=== PATIENT | male | born 1945 | race Caucasian/White ===

== ENCOUNTER → 2017-10-19 15:25 | Outpatient (BNVA) | payer MEDICARE, OTHER, SELFPAY | PROVIDERS: PCP Family Medicine; Visit Provider Surgery | DX: R93.3 Abnormal findings on diagnostic imaging of other parts of digestive tract (principal) | CPT/HCPCS: 99212 ==

== ENCOUNTER 2017-11-03 06:20 | Day surgery (SDC) | payer MEDICARE, OTHER, SELFPAY ==
[2017-11-03 06:20] VITALS: BP 154/81; PULSE 62; RESP 15; TEMP 36.4; O2SAT 99
[2017-11-03] MEDS: Lactated Ringers 1,000 ML 30 ML IV (07:00)
--- NOTE | 2017-11-03 07:49 | STOM_PTH ---
PATIENT: Mode Montejo JR LOC: [facility] U#:[id number] AGE/SX: 72/M ROOM: RE11/03/[address]: Chemo Harris DO : 1945 BED: DIS: 11/03/2017 SPEC #: [id number] RECD: 11/03/17 12:48 STATUS: JOSE EDUARDO RE #: [id number] LEAH: 11/03/17 07:[address]: Chemo Harris DEPT: Surgical Specimen RECD BY: Heather Buchanan ENTERED: 11/03/17 12:49 SP TYPE: STOMACH OTHR DR: Aditi Contreras Tissues: 1 - STOMACH BIOPSY 2 - ESOPHAGUS BIOPSY 3 - BIOPSY BOWEL Procedures: GROSS AND MICRO LEVEL 4 Comments: [id number]
--- NOTE | 2017-11-03 08:29 | W.PM.DSUDISC ---
Discharge Plan Disposition Patient Disposition: HOME Condition: Good Discharge Details Reason For Visit: Endoscopy Attending Provider: Chemo Harris Primary Care Provider: Aditi Contreras Home Meds and New Rx's Prescriptions: Continue losartan 50 MG tablet 50 mg PO DAILY RF: 0 atorvastatin [Lipitor] 10 MG tablet 10 mg PO EVERY OTHER DAY RF: 0 levothyroxine 112 MCG tablet 112 mcg PO DAILY RF: 0 vardenafil [Levitra] 5 MG tablet 5 mg PO PRN RF: 0 aspirin [Aspir-81] 81 MG tablet,delayed release (DR/EC) 81 mg PO DAILY Qty: 30 RF: 0 multivitamin [Daily Vitamin Formula] 1 EACH tablet 1 ea PO DAILY RF: 0 cholecalciferol (vitamin D3) [Vitamin D3] 1,000 UNIT capsule 1,000 unit PO DAILY RF: 0 yeast [Serrato's Yeast] 500 MG tablet 500 mg PO BID RF: 0 Discharge Instructions Instructions: Upper Endoscopy (DC), Colonoscopy (GEN) Activity:: Activity as Tolerated Diet:: As Tolerated Discharge Orders Discharge Orders: Discharge Order (Routine); Ordered 11/03/17 Ordered By: Chemo Harris DS: Diagnosis Discharge Diagnosis (1) Abnormal finding on CT scan: Status: Acute Asessment and Plan: EGD and colonoscopy scheduled for upper to evaluate thickening of esophagus and colitis seen on recent CT
--- NOTE | 2017-11-03 08:33 | W.PM.OP ---
Date of service: 11/03/17 Time of Service: 08:34 Operative Note DATE OF PROCEDURE: 11/03/17 PRE-OP DIAGNOSIS: Abnormal findings On CT POST-OP DIAGNOSIS: other (1. Alicia Quintanilla Tears, 2. Moderate Sigmoid Diverticulosis, 3. Sigmoid Colon Polyp, 4. Grade II Hemorrhoids) PROCEDURE: 1. Esophagogastroduodenoscopy with biopsy by cold forceps 2. Colonoscopy to the cecum with biopsy by cold forceps SURGEON: Chemo Harris ANESTHESIA: MAC (Chon Esteban CRNA ASA 2, Mallampati II) ESTIMATED BLOOD LOSS: 0.5 PATHOLOGY: other (1. Gastric Antral Bx 2. GE Jxn Bx 3. Sigmoid colon polyp) COMPLICATIONS: None Patient was transported to: same day Patient's condition: stable Implants: Bowel Preparation: Miralax/Biscodyl, Prep quality excellent Indications: 72-year-old male recently hospitalized for small bowel obstruction. Workup for small bowel obstruction did demonstrate abnormal findings on CT of both the esophagus and colon. Small bowel obstruction resolved with conservative therapy. Was recommended he undergo upper and lower endoscopy to things on CT from both the lower esophagus and colon. The procedures were discussed with him and the associated risks reviewed. All his questions were answered to his satisfaction Findings: On examining the upper gastrointestinal tract from the oropharynx to the third portion of the duodenum, linear erosions were noted at the GE junction consistent with Alicia-Quintanilla tears, and there is inflammatory changes noted in the gastric antrum. In examination of the colon from cecum to anus, patient was noted to have mild to moderate sigmoid diverticulosis, grade 2 hemorrhoids, and a sigmoid polyp was removed by cold biopsy forceps. Procedure Description: The patient was brought to the procedure room. A timeout was performed reviewing the patient's identification, allergies, medications, procedures, and fire risk. Monitoring for telemetry, end-tidal CO2, O2 saturation, and blood pressure were applied; a bite block was placed by the CAMPAIGN DEVELOPER. Sedation was titrated for effect by the CAMPAIGN DEVELOPER. Once adequate sedation was reached, I advanced Olympus variable stiffness endoscope from the oropharynx to the third portion of the duodenum without difficulty. The scope was then withdrawn in circumferential manner from the duodenum to the oropharynx. In removing the scope, the duodenum appeared grossly normal. Upon entering the gastric antrum, the antrum was noted to be inflamed but there were no conchis ulcerations noted, and biopsies were taken to confirm gross finding. The scope was retroflexed in the stomach the lesser and greater curvature is anterior and posterior surfaces and fundus the stomach appeared grossly normal. The scope was then withdrawn to the GE junction which are measured at 36 cm, Z line was at 36 cm. There was irregularity noted to the Z line with 3 longitudinal linear erosions located circumferentially at the GE junction. These extended for 1-2 cm, and were consistent with Alicia-Quintanilla tears. These appeared to be healing, and biopsies were taken to confirm gross findings. The scope was withdrawn through the remainder of the esophagus and no other pathology was identified. The scope was then withdrawn terminating the upper endoscopy. The patient was then repositioned for colonoscopy, and sedation was titrated for effect again. I performed a digital rectal exam which showed no gross blood, no masses, good rectal tone, and a normal prostate. An Olympus femoral stiffness colonoscope was then advanced from the anus to the cecum under direct visualization. The cecum was identified by the appendiceal orifice, and the ileocecal valve. The terminal ileum was intubated for approximately 15 cm, and no abnormalities were noted. The scope was then withdrawn back into the cecum, and subsequently withdrawn in circumferential manner from the cecum to the rectum. During withdrawal through the colon, a single polyp was identified in the proximal sigmoid and removed by cold biopsy forceps, it was less than 1 cm in greatest diameter. Also, noted in the colon, moderate sigmoid diverticulosis which is not a new finding. The scope was then withdrawn into the rectum and retroflexed. No no abnormalities of the rectum were identified. At the anorectal junction the patient was noted to have grade 2 hemorrhoids, with no stigmata of active bleeding. The scope was then withdrawn terminating the colonoscopy There are no complications during the procedures. The patient was brought to the day surgery recovery in good condition. Plan: Reviewing the findings both on upper and lower endoscopy, I suspect the thickening seen in the esophagus represents the Alicia-Quintanilla tears which were probably caused from the patient's intractable vomiting during his small bowel obstruction. The suspected colitis was probably from incompletely dilated colon, and sigmoid diverticulosis. Will await pathology for the sigmoid polyp before making further recommendations as to this
--- NOTE | 2017-11-03 08:42 | ROE_ITS ---
Date of service: 11/03/17 Time of Service: 08:34 Operative Note DATE OF PROCEDURE: 11/03/17 PRE-OP DIAGNOSIS: Abnormal findings On CT POST-OP DIAGNOSIS: other (1. Alicia Quintanilla Tears, 2. Moderate Sigmoid Diverticulosis, 3. Sigmoid Colon Polyp, 4. Grade II Hemorrhoids) PROCEDURE: 1. Esophagogastroduodenoscopy with biopsy by cold forceps 2. Colonoscopy to the cecum with biopsy by cold forceps SURGEON: Chemo Harris ANESTHESIA: MAC (Chon Esteban CRNA ASA 2, Mallampati II) ESTIMATED BLOOD LOSS: 0.5 PATHOLOGY: other (1. Gastric Antral Bx 2. GE Jxn Bx 3. Sigmoid colon polyp) COMPLICATIONS: None Patient was transported to: same day Patient's condition: stable Implants: Bowel Preparation: Miralax/Biscodyl, Prep quality excellent Indications: 72-year-old male recently hospitalized for small bowel obstruction. Workup for small bowel obstruction did demonstrate abnormal findings on CT of both the esophagus and colon. Small bowel obstruction resolved with conservative therapy. Was recommended he undergo upper and lower endoscopy to things on CT from both the lower esophagus and colon. The procedures were discussed with him and the associated risks reviewed. All his questions were answered to his satisfaction Findings: On examining the upper gastrointestinal tract from the oropharynx to the third portion of the duodenum, linear erosions were noted at the GE junction consistent with Alicia-Quintanilla tears, and there is inflammatory changes noted in the gastric antrum. In examination of the colon from cecum to anus, patient was noted to have mild to moderate sigmoid diverticulosis, grade 2 hemorrhoids, and a sigmoid polyp was removed by cold biopsy forceps. Procedure Description: The patient was brought to the procedure room. A timeout was performed reviewing the patient's identification, allergies, medications, procedures, and fire risk. Monitoring for telemetry, end-tidal CO2, O2 saturation, and blood pressure were applied; a bite block was placed by the RADIO TESTER. Sedation was titrated for effect by the RADIO TESTER. Once adequate sedation was reached, I advanced Olympus variable stiffness endoscope from the oropharynx to the third portion of the duodenum without difficulty. The scope was then withdrawn in circumferential manner from the duodenum to the oropharynx. In removing the scope, the duodenum appeared grossly normal. Upon entering the gastric antrum, the antrum was noted to be inflamed but there were no conchis ulcerations noted, and biopsies were taken to confirm gross finding. The scope was retroflexed in the stomach the lesser and greater curvature is anterior and posterior surfaces and fundus the stomach appeared grossly normal. The scope was then withdrawn to the GE junction which are measured at 36 cm, Z line was at 36 cm. There was irregularity noted to the Z line with 3 longitudinal linear erosions located circumferentially at the GE junction. These extended for 1-2 cm, and were consistent with Alicia-Quintanilla tears. These appeared to be healing, and biopsies were taken to confirm gross findings. The scope was withdrawn through the remainder of the esophagus and no other pathology was identified. The scope was then withdrawn terminating the upper endoscopy. The patient was then repositioned for colonoscopy, and sedation was titrated for effect again. I performed a digital rectal exam which showed no gross blood , no masses, good rectal tone, and a normal prostate. An Olympus femoral stiffness colonoscope was then advanced from the anus to the cecum under direct visualization. The cecum was identified by the appendiceal orifice, and the ileocecal valve. The terminal ileum was intubated for approximately 15 cm, and no abnormalities were noted. The scope was then withdrawn back into the cecum, and subsequently withdrawn in circumferential manner from the cecum to the rectum. During withdrawal through the colon, a single polyp was identified in the proximal sigmoid and removed by cold biopsy forceps, it was less than 1 cm in greatest diameter. Also, noted in the colon, moderate sigmoid diverticulosis which is not a new finding. The scope was then withdrawn into the rectum and retroflexed. No no abnormalities of the rectum were identified. At the anorectal junction the patient was noted to have grade 2 hemorrhoids, with no stigmata of active bleeding. The scope was then withdrawn terminating the colonoscopy There are no complications during the procedures. The patient was brought to the day surgery recovery in good condition. Plan: Reviewing the findings both on upper and lower endoscopy, I suspect the thickening seen in the esophagus represents the Alicia-Quintanilla tears which were probably caused from the patient's intractable vomiting during his small bowel obstruction. The suspected colitis was probably from incompletely dilated colon , and sigmoid diverticulosis. Will await pathology for the sigmoid polyp before making further recommendations as to this
[2017-11-03 09:10] VITALS: BP 113/75; PULSE 54; RESP 16; TEMP 35.6; O2SAT 97
== END 2017-11-03 09:26 | disposition home or self-care (01) ==
PROVIDERS: PCP Family Medicine; Visit Provider Surgery
PROC: (CPT 43239; principal; 2017-11-03 07:30)
DX: R93.3 Abnormal findings on diagnostic imaging of other parts of digestive tract (principal); K57.30 Diverticulosis of large intestine without perforation or abscess without bleeding; K63.5 Polyp of colon; K64.1 Second degree hemorrhoids; K31.89 Other diseases of stomach and duodenum; K21.0 Gastro-esophageal reflux disease with esophagitis; K22.6 Gastro-esophageal laceration-hemorrhage syndrome; I10 Essential (primary) hypertension
CPT/HCPCS: 43239; 45380; 88305

== ENCOUNTER → 2017-11-03 07:32 | Outpatient (BNVA) | payer MEDICARE, OTHER, SELFPAY | PROVIDERS: PCP Family Medicine; Referring Provider Family Medicine; Visit Provider Surgery | DX: R69 Illness, unspecified (principal) ==

== ENCOUNTER 2018-01-01 21:47 | Emergency (ER) | payer MEDICARE, OTHER, SELFPAY ==
[2018-01-01 21:53] VITALS: BP 160/79; PULSE 67; RESP 14; TEMP 37.3; O2SAT 96
[2018-01-01] MEDS: Amoxicillin 875/Clav. 125 TAB PO (23:20)
--- NOTE | 2018-01-01 23:24 | W.ED.GENAD ---
Discharge Plan Disposition Patient Disposition: HOME Condition: Good Discharge Details Chief Complaint: AnimalBite Clinical Impression: Dog bite of right hand Primary Care Provider: Aditi Contreras ED Provider: Santosh Walters Meds and New Rx's Prescriptions: New amoxicillin-pot clavulanate [Augmentin] 875-125 mg tablet 1 tab PO BID Qty: 14 RF: 0 Continue losartan 50 MG tablet 50 mg PO DAILY RF: 0 atorvastatin [Lipitor] 10 MG tablet 10 mg PO EVERY OTHER DAY RF: 0 levothyroxine 112 MCG tablet 112 mcg PO DAILY RF: 0 vardenafil [Levitra] 5 MG tablet 5 mg PO PRN RF: 0 aspirin [Aspir-81] 81 MG tablet,delayed release (DR/EC) 81 mg PO DAILY Qty: 30 RF: 0 multivitamin [Daily Vitamin Formula] 1 EACH tablet 1 ea PO DAILY RF: 0 cholecalciferol (vitamin D3) [Vitamin D3] 1,000 UNIT capsule 1,000 unit PO DAILY RF: 0 yeast [Serrato's Yeast] 500 MG tablet 500 mg PO BID RF: 0 Discharge Instructions Instructions: Animal Bite (ED) Additional Instructions: Clean the wound twice a day and keep covered. Watch for signs of infection which include increasing pain, redness, swelling. Return to ED or see primary care if any evidence of infection. Take antibiotic as directed. May use Tylenol Motrin for pain if needed. Referrals: Aditi Contreras [Primary Care Provider] - Medical Decision Making Patient with dog bite and laceration to the right thenar eminence. This is not a large wound. There is a puncture associated with it. Given where it is and its size would not close it. Discussed this at length with the patient and the reasoning why we did not close bites. Wound irrigated out with saline by nursing staff. Dressing applied. Tetanus updated. Patient started on Augmentin and will continue on Augmentin for 7 days. Told to watch for signs of infection and return if any fever, redness, swelling, drainage, increasing pain. Otherwise follow-up with primary care as needed. HPI General Mode of arrival: ambulatory. Date/Time Provider Initiated Documentation: 01/01/18 23:17. Limitations to Documentation: no limitations. Information obtained by: patient. HPI Narrative: Patient presents to the ED with dog bite to the right hand. Bite is from a pet who is up-to-date on its shots. Patient is not sure of his tetanus status. Injury is to the right thenar eminence. There is no injury elsewhere. He otherwise has no complaints. Related Data Home Medications Medication Instructions Recorded Confirmed aspirin [Aspir-81] 81 mg PO DAILY #30 tab-cap 07/15/17 01/01/18 atorvastatin [Lipitor] 10 mg PO EVERY OTHER DAY tab-cap 07/15/17 01/01/18 levothyroxine 112 mcg PO DAILY tab-cap 07/15/17 01/01/18 losartan 50 mg PO DAILY tab-cap 07/15/17 01/01/18 vardenafil [Levitra] 5 mg PO PRN tab-cap 07/15/17 01/01/18 cholecalciferol (vitamin D3) 1,000 unit PO DAILY 10/08/17 01/01/18 [Vitamin D3] multivitamin [Daily Vitamin 1 ea PO DAILY 10/08/17 01/01/18 Formula] yeast [Serrato's Yeast] 500 mg PO BID 10/08/17 01/01/18 amoxicillin-pot clavulanate 1 tab PO BID #14 tab 01/01/18 [Augmentin] Previous Rx's Medication Instructions Recorded aspirin [Aspir-81] 81 mg PO DAILY #30 tab-cap 07/15/17 amoxicillin-pot clavulanate 1 tab PO BID #14 tab 01/01/18 [Augmentin] Allergies Allergy/AdvReac Type Severity Reaction Status Date / Time lisinopril AdvReac cough Verified 01/01/18 21:57 General Stated Complaint: AnimalBite WENDI: 4 Review of Systems Constitutional Denies weakness Musculoskeletal Denies limited range of motion, Denies numbness and Denies tingling Integumentary/Breasts Reports wounds Neurologic Denies numbness, Denies tingling, Denies paresthesias and Denies weakness [facility] Medical History Ascending aortic aneurysm (Chronic) Diverticulosis (Chronic) ED (erectile dysfunction) (Chronic) Eczema (Chronic) Hypercholesterolemia (Chronic) Hypertension (Chronic) Hypothyroidism (Chronic) Peyronie's disease (Chronic) Vitamin D deficiency (Chronic) Prostatitis (Resolved) SBO (small bowel obstruction) (Resolved) Squamous cell carcinoma in situ of skin (Resolved) UTI (urinary tract infection) (Resolved) Vasovagal syncope (Resolved) Seborrheic keratosis (Inactive) Social History Smoking/Tobacco Use Status: Never alcohol intake: current alcohol intake frequency: holidays/special occasions only Alcohol type: beer and wine substance use type: does not use Surgical History H/O colonoscopy (Chronic 11/03/17) History of esophagogastroduodenoscopy (EGD) (Chronic 11/03/17) Dermatofibroma of right lower leg (Resolved) H/O vasectomy (Resolved) Normal colonoscopy (Resolved) Exam Const General: cooperative, comfortable and no acute distress Orientation: alert and oriented x3 HENMT Head: normocephalic and atraumatic Neck Neck: normal visual inspection, trachea midline and supple Skin Trauma: laceration (0.5 cm lac to right thenar eminence) Neuro General: alert, oriented x3, no focal motor deficits and CN's II-XI intact bilaterally Extrem General: normal exam except as noted Right upper extremity: hand Details: normal capillary refill, neuromotor exam normal, neurosensory exam normal, tendon exam normal, normal ROM of fingers and laceration Course Vital Signs Temperature 99.1 F 01/01/18 21:53 Pulse 67 01/01/18 21:53 Respiratory Rate 14 01/01/18 21:53 Blood Pressure 160/79 H 01/01/18 21:53 Pulse Oximetry 96 01/01/18 21:53 Temperature 99.1 F 01/01/18 21:53 Temperature Source Temporal Artery Scan 01/01/18 21:53 Pulse 67 01/01/18 21:53 Respiratory Rate 14 01/01/18 21:53 Respiratory Effort Non-Labored 01/01/18 21:56 Blood Pressure 160/79 H 01/01/18 21:53 Blood Pressure Position Sitting 01/01/18 21:53 Pulse Oximetry 96 01/01/18 21:53 Oxygen Delivery Method Room Air 01/01/18 21:53 Oxygen Flow Rate 0 01/01/18 21:53 Pain Level 1 01/01/18 21:53
--- NOTE | 2018-01-01 23:29 | ED.GENADUL_ITS ---
Discharge Plan Disposition Patient Disposition: HOME Condition: Good Discharge Details Chief Complaint: AnimalBite Clinical Impression: Dog bite of right hand Primary Care Provider: Aditi Contreras ED Provider: Santosh Walters Meds and New Rx's Prescriptions: New amoxicillin-pot clavulanate [Augmentin] 875-125 mg tablet 1 tab PO BID Qty: 14 RF: 0 Continue losartan 50 MG tablet 50 mg PO DAILY RF: 0 atorvastatin [Lipitor] 10 MG tablet 10 mg PO EVERY OTHER DAY RF: 0 levothyroxine 112 MCG tablet 112 mcg PO DAILY RF: 0 vardenafil [Levitra] 5 MG tablet 5 mg PO PRN RF: 0 aspirin [Aspir-81] 81 MG tablet,delayed release (DR/EC) 81 mg PO DAILY Qty: 30 RF: 0 multivitamin [Daily Vitamin Formula] 1 EACH tablet 1 ea PO DAILY RF: 0 cholecalciferol (vitamin D3) [Vitamin D3] 1,000 UNIT capsule 1,000 unit PO DAILY RF: 0 yeast [Serrato's Yeast] 500 MG tablet 500 mg PO BID RF: 0 Discharge Instructions Instructions: Animal Bite (ED) Additional Instructions: Clean the wound twice a day and keep covered. Watch for signs of infection which include increasing pain, redness, swelling. Return to ED or see primary care if any evidence of infection. Take antibiotic as directed. May use Tylenol Motrin for pain if needed. Referrals: Aditi Contreras [Primary Care Provider] - Medical Decision Making Patient with dog bite and laceration to the right thenar eminence. This is not a large wound. There is a puncture associated with it. Given where it is and its size would not close it. Discussed this at length with the patient and the reasoning why we did not close bites. Wound irrigated out with saline by nursing staff. Dressing applied. Tetanus updated. Patient started on Augmentin and will continue on Augmentin for 7 days. Told to watch for signs of infection and return if any fever, redness, swelling, drainage, increasing pain. Otherwise follow-up with primary care as needed. HPI General Mode of arrival: ambulatory . Date/Time Provider Initiated Documentation: 01/01/18 23:17 . Limitations to Documentation: no limitations . Information obtained by: patient . HPI Narrative: Patient presents to the ED with dog bite to the right hand. Bite is from a pet who is up-to-date on its shots. Patient is not sure of his tetanus status. Injury is to the right thenar eminence. There is no injury elsewhere. He otherwise has no complaints. Related Data Home Medications Medication Instructions Recorded Confirmed aspirin [Aspir-81] 81 mg PO DAILY #30 tab-cap 07/15/17 01/01/18 atorvastatin [Lipitor] 10 mg PO EVERY OTHER DAY tab-cap 07/15/17 01/01/18 levothyroxine 112 mcg PO DAILY tab-cap 07/15/17 01/01/18 losartan 50 mg PO DAILY tab-cap 07/15/17 01/01/18 vardenafil [Levitra] 5 mg PO PRN tab-cap 07/15/17 01/01/18 cholecalciferol (vitamin D3) 1,000 unit PO DAILY 10/08/17 01/01/18 [Vitamin D3] multivitamin [Daily Vitamin 1 ea PO DAILY 10/08/17 01/01/18 Formula] yeast [Serrato's Yeast] 500 mg PO BID 10/08/17 01/01/18 amoxicillin-pot clavulanate 1 tab PO BID #14 tab 01/01/18 [Augmentin] Previous Rx's Medication Instructions Recorded aspirin [Aspir-81] 81 mg PO DAILY #30 tab-cap 07/15/17 amoxicillin-pot clavulanate 1 tab PO BID #14 tab 01/01/18 [Augmentin] Allergies Allergy/AdvReac Type Severity Reaction Status Date / Time lisinopril AdvReac cough Verified 01/01/18 21:57 General Stated Complaint: AnimalBite WENDI: 4 Review of Systems Constitutional Denies weakness Musculoskeletal Denies limited range of motion, Denies numbness and Denies tingling Integumentary/Breasts Reports wounds Neurologic Denies numbness, Denies tingling, Denies paresthesias and Denies weakness [facility] Medical History Ascending aortic aneurysm (Chronic) Diverticulosis (Chronic) ED (erectile dysfunction) (Chronic) Eczema (Chronic) Hypercholesterolemia (Chronic) Hypertension (Chronic) Hypothyroidism (Chronic) Peyronie's disease (Chronic) Vitamin D deficiency (Chronic) Prostatitis (Resolved) SBO (small bowel obstruction) (Resolved) Squamous cell carcinoma in situ of skin (Resolved) UTI (urinary tract infection) (Resolved) Vasovagal syncope (Resolved) Seborrheic keratosis (Inactive) Social History Smoking/Tobacco Use Status: Never alcohol intake: current alcohol intake frequency: holidays/special occasions only Alcohol type: beer and wine substance use type: does not use Surgical History H/O colonoscopy (Chronic 11/03/17) History of esophagogastroduodenoscopy (EGD) (Chronic 11/03/17) Dermatofibroma of right lower leg (Resolved) H/O vasectomy (Resolved) Normal colonoscopy (Resolved) Exam Const General: cooperative, comfortable and no acute distress Orientation: alert and oriented x3 HENMT Head: normocephalic and atraumatic Neck Neck: normal visual inspection, trachea midline and supple Skin Trauma: laceration (0.5 cm lac to right thenar eminence) Neuro General: alert, oriented x3, no focal motor deficits and CN's II-XI intact bilaterally Extrem General: normal exam except as noted Right upper extremity: hand Details: normal capillary refill, neuromotor exam normal, neurosensory exam normal, tendon exam normal, normal ROM of fingers and laceration Course Vital Signs Temperature 99.1 F 01/01/18 21:53 Pulse 67 01/01/18 21:53 Respiratory Rate 14 01/01/18 21:53 Blood Pressure 160/79 H 01/01/18 21:53 Pulse Oximetry 96 01/01/18 21:53 Temperature 99.1 F 01/01/18 21:53 Temperature Source Temporal Artery Scan 01/01/18 21:53 Pulse 67 01/01/18 21:53 Respiratory Rate 14 01/01/18 21:53 Respiratory Effort Non-Labored 01/01/18 21:56 Blood Pressure 160/79 H 01/01/18 21:53 Blood Pressure Position Sitting 01/01/18 21:53 Pulse Oximetry 96 01/01/18 21:53 Oxygen Delivery Method Room Air 01/01/18 21:53 Oxygen Flow Rate 0 01/01/18 21:53 Pain Level 1 01/01/18 21:53
[2018-01-01 23:38] VITALS: BP 160/79; PULSE 67; RESP 14; TEMP 37.3; O2SAT 96
--- NOTE | 2018-01-02 15:22 | NUR.NOTE ---
Addendum entered by Maggie Hayes 01/04/18 09:55: 01-04-18 Spoke with Becky [facility] Health Officer for [facility]. She was given the information of the patient in regards to the dog bite. Maggie Hayes. Original Note: 0910 Left message with Becky Seay [facility] Health officer asking to return phone call. Left second message at 1520. Faxed animal bite report form to [employer], . Nursing Note:
== END 2018-01-01 23:46 | disposition home or self-care (01) ==
LOC: ER 23:47
PROVIDERS: Emergency Provider Emergency Medicine; PCP Family Medicine
DX: S61.451A Open bite of right hand, initial encounter (principal); W54.0XXA Bitten by dog, initial encounter; I10 Essential (primary) hypertension
CPT/HCPCS: 90471; 99284; 99283

== ENCOUNTER 2020-10-19 04:00 | Outpatient (CLI) | payer MEDICARE, OTHER, SELFPAY ==
--- NOTE | 2020-10-19 | DI.US_ITS ---
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 Estimated ejection fraction is 60 to 65%. Wall motion is normal Normal right ventricular size and systolic function Both atria are normal in size The aortic valve is bicuspid and mildly sclerotic. There is no aortic stenosis. There is trace aort ic regurgitation Structurally normal mitral valve with trace to mild regurgitation Normal tricuspid valve with mild to moderate regurgitation. Estimated right ventricular systolic pre ssure is 32 mmHg Normal pulmonic valve with mild regurgitation Mildly to moderately dilated aortic root and ascending aorta, both measuring approximately 4 cm Wall motion Left Ventricle The left ventricle is normal size. The left ventricular systolic function is normal. The left ventric ular ejection fraction is within the normal range. There is normal left ventricular wall thickness. T here is normal LV segmental wall motion. There is no ventricular septal defect visualized. LVEF is 60 -65%. Right Ventricle The right ventricle is normal size. The right ventricular systolic function is normal. The RVSP is 32 .3 mmHg. Atria The left atrium size is normal. The right atrium size is normal. The interatrial septum is intact wit h no evidence for an atrial septal defect. Aortic Valve The Aortic valve is sclerotic. Aortic valve is bicuspid. There is no aortic valvular stenosis. Trace aortic regurgitation. Mitral Valve The mitral valve is normal in structure. No evidence of mitral valve stenosis. Trace to mild mitral r egurgitation. Tricuspid Valve The tricuspid valve is normal in structure. There is no tricuspid valve stenosis. Mild to moderate tr icuspid regurgitation. Pulmonic Valve The pulmonary valve is normal in structure. There is no pulmonic valvular stenosis. Trace to mild pul fabrice regurgitation. Great Vessels Aortic root is mildly dilated. The ascending aorta is moderately dilated.4.02 cm Aortic arch is andreina l in caliber. IVC is normal in size and collapses >50% with inspiration. Pericardium There is no pericardial effusion. 2D Dimensions IVSD d PLAX 0.97 cm M: 0.6-1.2 LV Vol A2C d MOD 114.2 mL LVPW d PLAX 0.98 cm M: 0.6 - 1.2 LV Vol A4C d MOD 116.8 mL LVID d PLAX 5.28 cm M: 4.2 - 5.8 LA vol/ BSA A2C s A-L 24.8 mL/m2 LVDs 3.35 cm M: 2.5 - 4.0 LA vol/ BSA A4C s A-L 24.8 mL/m2 Ao Root d 4.02 cm M: 3.1 - 3.7 LA Vol/ BSA Biplane s A-L 24.9 mL/m2 RA Area A4C 10.28 cm2 LA Area A4C s MOD 16.84 cm2 RA Vol/ BSA A4C s A-L 11.2 mL/m2 LA Area A2C s MOD 16.76 cm2 Ao Asc Diam d 4.01 cm M: 2.6 - 3.4 LV EF A4C MOD 58.2 % LV EF Teichholz 65.9 % LV EF A2C MOD 58.8 % LVEF (Bowens's) 59.23 % M: 52 - 72 LV EF Biplane MOD 59.2 % LV Volume 90.10 mL M: 62 - 150 SV 70.22 mL LV Volume Index 46.92 mL/m2 M: 34 - 74 SV Index 36.51 mL/m2 LV Vol Biplane MOD 118.6 mL FS 36.55 % M-Mode TAPSE 3.01 cm (M/F) >1.7 LV Diastology MV E' medial 0.070 (>0.07 m/s) E/A Ratio 0.9 LV E/e MED 9.55 (<14) MV E Vmax 0.67 (0.4-1.3 m/s) MV E' lateral 0.099 (>0.1 m/s) MV A Vmax 0.75 (0.4-1.3 m/s) LV E/e LAT 6.80 (<14) MV E/A Ratio 0.87 MV E/E' medial 9.58 MV E/E' lateral 6.83 Aortic Valve LVOT Area 3.13 cm2 AoV Area Vmax 2.20 cm2 LVOT Vmax 0.93 m/s AoV Area/ BSA (Vmax) 1.14 cm2/m2 LVOT Mean Tommy. 0.55 m/s INOCENTE Mean Tommy. 1.90 cm2 LVOT Peak Grad 3.5 mmHg INOCENTE Mean Tommy. Index 0.99 cm2/m2 LVOT Mean Grad 1.5 mmHg AR DT 3336 msec LVOT VTI 0.206 m AR PHT 967 msec LVOT Diam s 1.95 cm AoV Vmax 1.32 m/s Velocity Ratio 0.70 AoV Mean Tommy. 0.90 m/s AoV Peak Grad 7.0 mmHg LVOT SV 64.34 mL AoV Mean Grad 3.8 mmHg AoV VTI 0.292 m AoV Area VTI 2.20 cm2 AoV Area/ BSA (VTI) 1.14 cm/m2 Mitral Valve MV DT 242 (160-240 msec) MR Vmax 5.94 m/s MV PHT 70 msec MR VTI 2.157 m MV Area PHT 3.13 cm2 MR Peak Grad 141.1 mmHg MV VTI 0.325 m MR Mean Grad 101.4 mmHg MV VTI Annulus 0.327 m MR PISA Radius 0.30 cm MV Area VTI 1.99 (4.0-6.0 cm2) MR EROA 0.03 cm2 MR Aliasing Velocity 0.35 m/s MR PISA 0.55 cm2 Pulmonary Valve PV Vmax 0.86 (0.5-1.5 m/s) RVOT Peak Gr. 1.77 mmHg PV Peak Grad 3.0 mmHg RVOT Mean Gr. 0.90 mmHg PV Mean Grad 1.7 mmHg RVOT VTI 0.154 m PV VTI 0.183 m RVOT Vmax 0.67 m/s Tricuspid Valve TR Peak Grad 29.2 mmHg TR Vmax 2.71 m/s RA Pressure 3.00 mmHg RVSP (TR) 32.3 mmHg
== END 2020-10-19 04:20 ==
PROVIDERS: PCP Family Medicine; Visit Provider Physician Assistant Medical
DX: Q23.1 Congenital insufficiency of aortic valve (principal); I08.8 Other rheumatic multiple valve diseases; I77.810 Thoracic aortic ectasia
CPT/HCPCS: 93306

== ENCOUNTER 2020-10-22 01:55 | Outpatient (CLI) | payer MEDICARE, OTHER, SELFPAY ==
--- NOTE | 2020-10-22 | DI.US_ITS ---
Exam(s) US SCROTUM EXAM: US SCROTUM CLINICAL HISTORY: LEFT SMALL HYDROCELE N43.3. TECHNIQUE: Scrotal ultrasound performed using grayscale, color-flow and spectral Doppler analysis. COMPARISON: No exams were available for comparison FINDINGS: Right testicle: 3.8 x 1.6 x 3 cm Echogenicity: Mild atrophy. Mild heterogeneous echotexture without evidence of mass. No evidence of torsion. Contour: Smooth. Mass: None seen. Microlithiasis: None. Hydrocele: None. Variocele: None. Left testicle: 4.6 x 2.5 x 4.1 cm Contour: Smooth. Echogenicity: Normal. Dilated rete testis Mass: None seen. Microlithiasis: None. Hydrocele: 6.0 x 2.8 x 6.3 cm Variocele: None. Hernia: No peristalsing bowel loop identified. Epididymis: Small cysts in the head of the epididymis. DOPPLER: Color: Symmetric and uniform, no hyperemia. Duplex: Bilateral testicular arterial waveforms visualized. IMPRESSION: Left hydrocele. Mildly atrophic right testicle. DATA REPOSITORY:
== END 2020-10-22 02:15 ==
PROVIDERS: PCP Family Medicine; Visit Provider Physician Assistant Medical
DX: N43.2 Other hydrocele (principal); N50.0 Atrophy of testis
CPT/HCPCS: 76870

== ENCOUNTER 2021-02-22 08:21 | Outpatient (CLI) | payer MEDICARE, OTHER, SELFPAY ==
--- NOTE | 2021-02-22 08:15 | RT.EKG_ITS ---
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
== END 2021-02-22 08:22 | disposition home or self-care (01) ==
LOC: DI.CARD 08:24
PROVIDERS: PCP Family Medicine; Visit Provider Internal Medicine Cardiovascular Disease
DX: I10 Essential (primary) hypertension (principal); R55 Syncope and collapse; I44.0 Atrioventricular block, first degree; I45.19 Other right bundle-branch block; I44.4 Left anterior fascicular block
CPT/HCPCS: 93010

== ENCOUNTER → 2021-02-22 10:34 | Outpatient (BNVA) | payer MEDICARE, OTHER, SELFPAY | PROVIDERS: PCP Family Medicine; Referring Provider Family Medicine; Visit Provider Internal Medicine Cardiovascular Disease | DX: I71.2 Thoracic aortic aneurysm, without rupture (principal); I10 Essential (primary) hypertension; Q23.1 Congenital insufficiency of aortic valve | CPT/HCPCS: 93005; 99203 ==

== ENCOUNTER 2022-08-26 00:39 | Outpatient (CLI) | payer MEDICARE, OTHER, SELFPAY ==
--- NOTE | 2022-08-26 06:30 | DI.US_ITS ---
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 Ejection fraction is 65%. Wall motion is n ormal Normal right ventricular size and systolic function. Both atria are mildly dilated Aortic valve is sclerotic and probably bicuspid with trace regurgitation. There is no aortic stenosi s Mildly thickened mitral leaflets, mild mitral regurgitation Normal tricuspid valve with moderate regurgitation. Estimated right ventricular systolic pressure is 32 mmHg Dilated ascending aorta measuring 3.83 cm Wall motion Left Ventricle The left ventricle is normal size. The left ventricular systolic function is normal. The left ventric ular ejection fraction is within the normal range. There is normal left ventricular wall thickness. T here is normal LV segmental wall motion. There is no ventricular septal defect visualized. LVEF is 65 %. Right Ventricle The right ventricle is normal size. Right ventricular systolic function is grossly normal. The RVSP i s 32.3 mmHg. Atria Left atrium is mildly dilated. Right atrium is mildly dilated. The interatrial septum is intact with no evidence for an atrial septal defect. Aortic Valve The Aortic valve is sclerotic. Aortic valve is probably bicuspid. There is no aortic valvular stenosi s. Trace aortic regurgitation. Mitral Valve Mildly thickened mitral leaflets No evidence of mitral valve stenosis. Mild mitral regurgitation. Tricuspid Valve The tricuspid valve is normal in structure. There is no tricuspid valve stenosis. Moderate tricuspid regurgitation. Pulmonic Valve The pulmonary valve is normal in structure. There is no pulmonic valvular stenosis. Moderate to sever e pulmonic regurgitation. Great Vessels Aortic root is moderately dilated. The ascending aorta is mildly dilated. Aortic arch is normal in ca liber. IVC is normal in size and collapses >50% with inspiration. Pericardium There is no pericardial effusion. 2D Dimensions IVSD d PLAX 0.75 cm M: 0.6-1.2 LV Vol A2C d MOD 155.2 mL LVPW d PLAX 0.75 cm M: 0.6 - 1.2 LV Vol A4C d MOD 134.0 mL LVID d PLAX 4.57 cm M: 4.2 - 5.8 LA vol/ BSA A4C s A-L 40.7 mL/m2 LVDs 2.80 cm M: 2.5 - 4.0 LA Area A4C s MOD 22.32 cm2 Ao Root d 4.00 cm M: 3.1 - 3.7 LV EF A4C MOD 66.1 % Ao Asc Diam d 3.83 cm M: 2.6 - 3.4 LV EF A2C MOD 68.3 % LV EF Teichholz 68.2 % LV EF Biplane MOD 68.2 % LVEF (Bowens's) 68.22 % M: 52 - 72 SV 101.65 mL LV Volume 112.74 mL M: 62 - 150 SV Index 52.18 mL/m2 LV Volume Index 57.81 mL/m2 M: 34 - 74 LV Vol Biplane MOD 149.0 mL FS 37.90 % M-Mode TAPSE 2.27 cm (M/F) >1.7 LV Diastology MV E' medial 0.084 (>0.07 m/s) E/A Ratio 1.0 LV E/e MED 10.25 (<14) MV E Vmax 0.87 (0.4-1.3 m/s) MV E' lateral 0.090 (>0.1 m/s) MV A Vmax 0.90 (0.4-1.3 m/s) LV E/e LAT 9.60 (<14) MV E/A Ratio 0.95 MV E/E' medial 10.30 MV E/E' lateral 9.63 Aortic Valve LVOT Area 3.68 cm2 AoV Area Vmax 2.84 cm2 LVOT Vmax 0.92 m/s AoV Area/ BSA (Vmax) 1.46 cm2/m2 LVOT Mean Tommy. 0.59 m/s INOCENTE Mean Tommy. 2.74 cm2 LVOT Peak Grad 3.4 mmHg INOCENTE Mean Tommy. Index 1.41 cm2/m2 LVOT Mean Grad 1.7 mmHg LVOT VTI 0.250 m LVOT Diam s 2.15 cm AoV Vmax 1.20 m/s Velocity Ratio 0.77 AoV Mean Tommy. 0.79 m/s AoV Peak Grad 5.7 mmHg LVOT SV 91.91 mL AoV Mean Grad 2.9 mmHg AoV VTI 0.282 m AoV Area VTI 3.26 cm2 AoV Area/ BSA (VTI) 1.68 cm/m2 Mitral Valve MV DT 213 (160-240 msec) MV PHT 62 msec MV Area PHT 3.56 cm2 MV VTI 0.354 m MV Area VTI 2.59 (4.0-6.0 cm2) Pulmonary Valve PV Vmax 0.86 (0.5-1.5 m/s) RVOT Peak Gr. 1.39 mmHg PV Peak Grad 2.9 mmHg RVOT Mean Gr. 0.80 mmHg PV Mean Grad 1.5 mmHg RVOT VTI 0.176 m PV VTI 0.224 m RVOT Vmax 0.59 m/s Tricuspid Valve TR Peak Grad 29.2 mmHg TR Vmax 2.71 m/s RA Pressure 3.00 mmHg RVSP (TR) 32.3 mmHg
== END 2022-08-26 00:59 ==
LOC: DI 00:39
PROVIDERS: PCP Family Medicine; Visit Provider Internal Medicine Cardiovascular Disease
DX: I71.20 Thoracic aortic aneurysm, without rupture, unspecified (principal); Q23.1 Congenital insufficiency of aortic valve
CPT/HCPCS: 93306

== ENCOUNTER → 2022-08-29 10:16 | Outpatient (BNVA) | payer MEDICARE, OTHER, SELFPAY | PROVIDERS: PCP Family Medicine; Referring Provider Family Medicine; Visit Provider Internal Medicine Cardiovascular Disease | DX: Q23.1 Congenital insufficiency of aortic valve (principal); I77.810 Thoracic aortic ectasia; I10 Essential (primary) hypertension | CPT/HCPCS: 99213 ==

== ENCOUNTER 2024-01-27 16:46 | Emergency (ER) | payer MEDICARE, OTHER, SELFPAY ==
[2024-01-27 16:51] VITALS: BP 146/89; PULSE 61; RESP 16; TEMP 36.8; O2SAT 95
[2024-01-27] MEDS: Amox. 875/Clav. 125, 2 TABS/BTL 1 TAB PO (17:44)
[2024-01-27 17:50] VITALS: BP 140/87; PULSE 61; RESP 16; TEMP 36.8; O2SAT 100
--- NOTE | 2024-01-27 18:57 | ED.GENADUL_ITS ---
Discharge Plan Disposition Patient Disposition: Home Discharge Details Clinical Impression: Dog bite, Hand laceration Primary Care Provider: Aditi Contreras ED Provider: Heather Farrell Home Meds and New Rx's Prescriptions: New amoxicillin-pot clavulanate 875-125 mg tablet 1 tab PO BID Qty: 12 0RF Continued atorvastatin [Lipitor] 10 MG tablet 10 mg PO EVERY OTHER DAY aspirin [Aspir-81] 81 MG tablet,delayed release (DR/EC) 81 mg PO DAILY Qty: 30 0RF multivitamin [Daily Vitamin Formula] 1 EACH tablet 1 ea PO DAILY cholecalciferol (vitamin D3) [Vitamin D3] 1,000 UNIT capsule 1,000 unit PO DAILY Serrato's Yeast 500 MG tablet 500 mg PO BID bisoprolol fumarate 5 mg tablet 5 mg PO DAILY losartan 50 mg tablet 100 mg PO DAILY levothyroxine 112 mcg tablet 112 mcg PO DAILY sildenafil 50 mg tablet 50 mg PO DAILY PRN Rx Instructions: administer 30 minutes to 4 hours before activity tadalafil 5 mg tablet 5 mg PO DAILY Discharge Instructions Instructions: Animal Bites ED Additional Instructions: Animal control has been notified and will check in to confirm that rabies shots are up-to-date for your neighbors animal If you find that the rabies vaccines are not current, I recommend returning immediately for rabies vaccine and immunoglobulin. The dog should then be placed on a 10-day quarantine. If the dog is in fact up-to-date on rabies vaccine, monitor for signs of infection, try to refrain from bending your fifth digit is much as possible to allow time to heal, take the antibiotic as prescribed, wash and soap and water daily and redress, allowed to air dry in 72 hours at night and keep it covered during the day. Please return for spreading redness, fever, worsening pain Discharge Data Discharge Date/Time-TO BE ENTERED AT DEPARTURE: 01/27/24 17:52 HPI General Date/Time Provider Initiated Documentation: 01/27/24 16:56 . HPI Narrative: This 79-year-old male presents postop day at 3 PM. He states he was in his car reaching into his mailbox to grab his mail when the dog suddenly jumped up and bit him. 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 He is unsure regarding rabies vaccines but feels the dog can be appropriately quarantined until they are able to confirm whether or not the dog is vaccinated. Patient denies any additional injuries aside from several bites to his left hand. States his tetanus is up-to-date 2018. Denies any strength or sensation change.. Related Data Home Medications ?Medication ?Instructions ?Recorded ?Confirmed aspirin 81 mg tablet,delayed 81 mg PO DAILY #30 tab-caps 07/15/17 01/27/24 release (Aspir-) atorvastatin 10 mg tablet (Lipitor) 10 mg PO EVERY OTHER DAY 07/15/17 01/27/24 cholecalciferol (vitamin D3) 25 1,000 unit PO DAILY 10/08/17 01/27/24 mcg (1,000 unit) capsule (Vitamin D3) multivitamin (Daily Vitamin 1 ea PO DAILY 10/08/17 01/27/24 Formula tablet) yeast 500 mg (7.5 gr) tablet 500 mg PO BID 10/08/17 01/27/24 (Serrato's Yeast) bisoprolol fumarate 5 mg tablet 5 mg PO DAILY 01/18/21 01/27/24 levothyroxine 112 mcg tablet 112 mcg PO DAILY 01/18/21 01/27/24 losartan 50 mg tablet 100 mg PO DAILY 01/18/21 01/27/24 sildenafil 50 mg tablet 50 mg PO DAILY PRN 01/18/21 01/27/24 tadalafil 5 mg tablet 5 mg PO DAILY 04/23/23 01/27/24 amoxicillin 875 mg-potassium 1 tab PO BID #12 tabs 01/27/24 clavulanate 125 mg tablet Previous Rx's ?Medication ?Instructions ?Recorded aspirin 81 mg tablet,delayed 81 mg PO DAILY #30 tab-caps 07/15/17 release (Aspir-) amoxicillin 875 mg-potassium 1 tab PO BID #12 tabs 01/27/24 clavulanate 125 mg tablet Allergies Allergy/AdvReac Type Severity Reaction Status Date / Time lisinopril AdvReac cough Verified 08/29/22 10:27 General Stated Complaint: AnimalBite WENDI: 4 Exam Narrative Exam Narrative: 79-year-old male, alert and oriented, laceration to fifth MCP region on left hand, superficial, laceration proximately 3 mm to third digit on the dorsal aspect and an additional laceration to the fourth digit on the dorsal aspect proximal to the PIP joint. Patient has complete range of motion, is neurovascularly intact. Course Vital Signs Vital signs: Vital Signs Temperature 36.8 C 01/27/24 16:51 Pulse 61 01/27/24 16:51 Respiratory Rate 16 01/27/24 16:51 Blood Pressure 146/89 H 01/27/24 16:51 Pulse Oximetry 95 01/27/24 16:51 Temperature 36.8 C 01/27/24 17:50 Temperature Source Temporal Artery Scan 01/27/24 16:51 Pulse 61 01/27/24 17:50 Respiratory Rate 16 01/27/24 17:50 Blood Pressure 140/87 01/27/24 17:50 Blood Pressure Position Sitting 01/27/24 16:51 Pulse Oximetry 100 01/27/24 17:50 Oxygen Delivery Method Room Air 01/27/24 16:51 Oxygen Flow Rate 0 01/27/24 16:51 Pain Level 0 01/27/24 17:50 Medical Decision Making 79-year-old male presenting post dog bite was neighbors dog. Unable to confirm rabies vaccines however dog can be quarantined until animal control is able to visit or patient is able to contact his neighbor. He will return immediately if the dog is not up-to-date on rabies vaccines. In the interim the dog will be quarantined. Wounds were cleansed copiously and dressings applied with a splint to the fifth digit. I will not suture wounds as they are at great risk for infection. Augmentin was initiated for prophylaxis for infection. We reviewed rabies vaccine information and patient expressed understanding. We will hold on rabies vaccines and patient is aware that he has approximately 72 hours to make the decision whether or not to initiate prophylaxis. Quality:SDOH Health Related Social Needs: No Data to Display PFSH All Active Problems (Updated 01/27/24 @ 17:20 by JASMINA Rhoades) Hand laceration (Acute) Dog bite (Acute) Mild ascending aorta dilation (Acute) Epidermal cyst of ear (Acute) Hydrocele (Acute) left Thoracic aortic aneurysm, without rupture (Acute) Bicuspid aortic valve (Acute) Abnormal finding on CT scan (Acute) Syncope (Acute) Epigastric pain (Acute) Essential hypertension (Acute) Small bowel obstruction (Acute) Urinary tract infection (Acute) Discharge planning issues (Acute) Medical History (Updated 01/27/24 @ 17:20 by JASMINA Rhoades) Vitamin D deficiency Hypertension SBO (small bowel obstruction) Ascending aortic aneurysm Prostatitis Hypothyroidism Hypercholesterolemia Eczema ED (erectile dysfunction) Seborrheic keratosis Vasovagal syncope Diverticulosis Squamous cell carcinoma in situ of skin Peyronie's disease UTI (urinary tract infection) Surgical History History of esophagogastroduodenoscopy (EGD) (11/03/17) Dr Harris H/O colonoscopy (11/03/17) Dr Harris, repeat in 10 years, showed diverticulosis Normal colonoscopy H/O vasectomy Dermatofibroma of right lower leg Social History Smoking/Tobacco Use Status: Never Smoking risk assessment performed?: Yes Alcohol Intake: current Alcohol Intake frequency: holidays/special occasions only Alcohol type: beer and wine Drug use: Never Substance use type: does not use Household members: spouse What type of physical activity do you participate in: regular exercise, resistance training and additional Details: running, bowflex, biking Duration: 45-60 minutes/day Frequency: 3-4 times per week Do you feel safe in your relationship?: Yes
== END 2024-01-27 17:52 | disposition home or self-care (01) ==
PROVIDERS: Emergency Provider Physician Assistant; PCP Family Medicine
DX: S61.412A Laceration without foreign body of left hand, initial encounter (principal); I10 Essential (primary) hypertension; E78.00 Pure hypercholesterolemia, unspecified; Z79.82 Long term (current) use of aspirin; W54.0XXA Bitten by dog, initial encounter; Y93.89 Activity, other specified; Y92.414 Local residential or business street as the place of occurrence of the external cause
CPT/HCPCS: 99283

== ENCOUNTER 2024-04-29 09:00 | Day surgery (SDC) | payer MEDICARE, OTHER, SELFPAY ==
[2024-04-29 09:34] VITALS: BP 152/76; PULSE 61; RESP 14; TEMP 36.5; O2SAT 96
[2024-04-29] MEDS: Tropicam./Phenyleph. (1/2.5%) 5 ML BTL OD ×3 (09:50→10:04)
--- NOTE | 2024-04-29 10:13 | W.ANESPRE ---
General Info Date of Service Date Performed: 04/29/24 Height: 5 ft 10 in Weight: 79.7 kg Body Mass Index (BMI): 25.2 Surgical Procedure: Operation Date: 04/29/24 11:40 Proposed Procedure Side Surgeon p Cataract Extraction with IOL Implant Left Bryan Bowling MD Meds Allergies and Home Medications Allergies Allergy/AdvReac Type Severity Reaction Status Date / Time lisinopril AdvReac cough Verified 04/29/24 09:31 Home Medication ?Medication ?Instructions ?Recorded aspirin 81 mg tablet,delayed 81 mg PO DAILY #30 tab-caps 07/15/17 release (Aspir-) atorvastatin 10 mg tablet (Lipitor) 20 mg PO EVERY OTHER DAY 07/15/17 cholecalciferol (vitamin D3) 25 1,000 unit PO DAILY 10/08/17 mcg (1,000 unit) capsule (Vitamin D3) multivitamin (Daily Vitamin 1 ea PO DAILY 10/08/17 Formula tablet) yeast 500 mg (7.5 gr) tablet 500 mg PO BID 10/08/17 (Serrato's Yeast) bisoprolol fumarate 5 mg tablet 5 mg PO DAILY 01/18/21 losartan 50 mg tablet 100 mg PO DAILY 01/18/21 sildenafil 50 mg tablet 50 mg PO DAILY PRN 01/18/21 hydrocortisone 2.5 % topical cream 1 applic topical BID PRN 04/26/24 ketoconazole 2 % topical cream 1 applic topical BID PRN 04/26/24 levothyroxine 100 mcg tablet 100 mcg PO DAILY 04/26/24 tadalafil 20 mg tablet 20 mg PO DAILY 04/26/24 triamcinolone acetonide 0.1 % 1 applic topical BID PRN 04/26/24 topical ointment Current Visit Medications: Current Medications Generic Name Dose Route Start Last Admin Trade Name Freq PRN Reason Stop Dose Admin Acetaminophen 1,000 mg 04/29/24 06:00 Acetaminophen 500 Mg Tab PO 05/29/24 05:59 Q4H PRN PRN Balanced Salt Solution 500 ml 04/29/24 06:00 Balanced Salt Soln.-Plus 500 Ml Bag OP 05/29/24 05:59 DIRECTED [facility] Miscellaneous Medication 0 ml 04/29/24 06:00 Prednisolone 1%, Moxifloxacin 0.5%, Bromfenac 0.09% 5.6ml Btl OD 05/29/24 05:59 DIRECTED [facility] Miscellaneous Medication 0 ml 04/29/24 06:00 04/29/24 10:04 Tropicam./Phenyleph. (1/2.5%) 5 Ml Btl OD 05/29/24 05:59 1 drp DIRECTED FAUSTO Administration Tetracaine HCl 0 ml 04/29/24 06:00 Tetracaine 0.5% 4 Ml Btl OD 05/29/24 05:59 DIRECTED [facility] PFSH Active Problems Active Problems: Problem Status Onset Code Cortical age-related cataract, left eye Acute H25.012 Nuclear age-related cataract, left eye Acute H25.12 Mild ascending aorta dilation Acute I77.810 Epidermal cyst of ear Acute L72.0 Hydrocele Acute N43.3 Thoracic aortic aneurysm, without rupture Acute I71.2 Bicuspid aortic valve Acute Q23.[address] scan Acute R93.8 Syncope Acute R55 Epigastric pain Acute R10.13 Essential hypertension Acute I10 Small bowel obstruction Acute K56.609 Urinary tract infection Acute N39.0 Discharge planning issues Acute Z02.9 Medical History Medical History Vitamin D deficiency Hypertension SBO (small bowel obstruction) Ascending aortic aneurysm Prostatitis Hypothyroidism Hypercholesterolemia Eczema ED (erectile dysfunction) Seborrheic keratosis Vasovagal syncope Diverticulosis Squamous cell carcinoma in situ of skin Peyronie's disease UTI (urinary tract infection) Surgical History Surgical History History of esophagogastroduodenoscopy (EGD) (11/03/17) Dr Harris H/O colonoscopy (11/03/17) Dr Harris, repeat in 10 years, showed diverticulosis Normal colonoscopy H/O vasectomy Dermatofibroma of right lower leg Tobacco Smoking/Tobacco Use Status: Never Passive smoking exposure: No Alcohol Alcohol Intake: current Alcohol intake frequency: holidays/special occasions only Alcohol type: beer and wine Substance Use Substance use: Never Substance use type: does not use Vital Signs and Lab Results Vital Signs Most Recent Vital Signs in EMR: Most Recent Vital Signs Temp Pulse Resp BP Pulse Ox 36.5 C 61 14 152/76 H 96 04/29/24 09:34 04/29/24 09:34 04/29/24 09:34 04/29/24 09:34 04/29/24 09:34 Lab Results Blood Type / Crossmatch: No Data to Display Complete Blood Count: No Data to Display Complete Metabolic Panel: No Data to Display Liver Function Panel: No Data to Display Coagulation Panel: No Data to Display Cardiac Panel: No Data to Display Arterial Blood Gas: No Data to Display Venous Blood Gas: No Data to Display Pancreas Panel: No Data to Display Thyroid Panel: No Data to Display Infectious Disease: No Data to Display Blood Cultures: No Data to Display Toxicology Panel: No Data to Display Imaging and Studies Imaging and Studies Study information below may be from another EMR and interpreted by another provider. Please see original notes in EMR for more complete details. 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 Ejection fraction is 65%. Wall motion is normal Normal right ventricular size and systolic function. Both atria are mildly dilated Aortic valve is sclerotic and probably bicuspid with trace regurgitation. There is no aortic stenosis Mildly thickened mitral leaflets, mild mitral regurgitation Normal tricuspid valve with moderate regurgitation. Estimated right ventricular systolic pressure is 32 mmHg Dilated ascending aorta measuring 3.83 cm Carotid Artery Summary:: 07/2015:There is mild systolic and diastolic velocity elevations consistent with borderline mild to moderate stenosis bilaterally. There is no visible carotid artery narrowing. Anesthesia Assessment and Plan Anesthesia History Personal History: No History of Anesthesia Complications Family History: No Family History of Anesthesia Complications Exercise Tolerance Exercise Tolerance: Metabolic Equivalents>4 Pertinent Negatives Pertinent Negatives: No Symptoms of GERD Cardiac & Pulmonary Exam Cardiac Exam: Normal S1/S2 Heart Sounds Pulmonary Exam: Clear Bilateral Breath Sounds Implantable Cardiac Device Does patient have a Pacemaker or an ICD?: No Airway Exam Known Difficult Airway: No Mallampati Class: 1 Mouth Opening: Normal (> 3cm) Thyromental Distance: Greater than 3 cm Neck Range of Motion: Full ROM Neck Circumference: Normal Teeth Condition: Normal Dentition ASA Classification ASA Score: ASA 3 Emergency Case?: No NPO Status NPO Status: NPO Clears >2 hours, Solids >8 hours Anesthesia Plan Resuscitation Status: Full Code Anesthesia Technique: MAC Anesthesia Airway Planned: Natural Airway Monitors Used: Standard Monitors
[2024-04-29 10:33] VITALS: BMI 25.2
[2024-04-29] MEDS: Povidone-Iodine Ophth 30 ML BTL (10:51)
[2024-04-29] MEDS: Tetracaine 0.5% 4 ML BTL OD (10:51)
[2024-04-29] MEDS: Lidocaine 1% Pres-Free 5 ML VIAL (10:57)
[2024-04-29] MEDS: Phenylephrine/Lidocaine (15/10) MG/ML 1 ML VIAL (10:57)
[2024-04-29] MEDS: Duovisc Viscoelastic System EACH 1 EACH (10:58)
[2024-04-29] MEDS: Balanced Salt Soln.-PLUS 500 ML BAG OP (10:59)
[2024-04-29] MEDS: Moxifloxacin-PF 1 MG/ML VIAL (11:14)
[2024-04-29] MEDS: Prednisolone 1%, Moxifloxacin 0.5%, Bromfenac 0.09% 5.6ML BTL OD (11:14)
[2024-04-29 11:19] VITALS: BP 153/71; PULSE 58; RESP 16; TEMP 36.4; O2SAT 92
--- NOTE | 2024-04-29 11:19 | W.PM.DSUDISC ---
Date of service: 04/29/24 Discharge Plan Disposition Patient Disposition: Home Discharge Details Attending Provider: Bryan Bowling Primary Care Provider: Aditi Contreras Home Meds and New Rx's Prescriptions: No Action atorvastatin [Lipitor] 10 MG tablet 20 mg PO EVERY OTHER DAY aspirin [Aspir-81] 81 MG tablet,delayed release (DR/EC) 81 mg PO DAILY Qty: 30 0RF multivitamin [Daily Vitamin Formula] 1 EACH tablet 1 ea PO DAILY cholecalciferol (vitamin D3) [Vitamin D3] 1,000 UNIT capsule 1,000 unit PO DAILY Serrato's Yeast 500 MG tablet 500 mg PO BID bisoprolol fumarate 5 mg tablet 5 mg PO DAILY losartan 50 mg tablet 100 mg PO DAILY sildenafil 50 mg tablet 50 mg PO DAILY PRN Rx Instructions: administer 30 minutes to 4 hours before activity tadalafil 20 mg tablet 20 mg PO DAILY Rx Instructions: administer approximately 30min before sexual activity; do not use more than 1 dose per 24hrs levothyroxine 100 mcg tablet 100 mcg PO DAILY Patient Comments: TAKE ONE TABLET BY MOUTH EVERY DAY ketoconazole 2 % cream 1 applic topical BID PRN hydrocortisone 2.5 % cream 1 applic topical BID PRN triamcinolone acetonide 0.1 % ointment 1 applic topical BID PRN Discharge Instructions Stand Alone Forms: DSU Post-Op Makenzie Mckeon (DSU) Discharge Orders Discharge Orders: Discharge Order (Routine); Ordered 04/29/24 Ordered By: Bryan Bowling DS: Diagnosis Discharge Diagnosis (1) Cortical age-related cataract, left eye: Status: Resolved (2) Nuclear age-related cataract, left eye: Status: Resolved
--- NOTE | 2024-04-29 11:20 | W.PM.OP ---
Operative Note Operative Note PRE-OP DIAGNOSIS: Nuclear/cortical cataract, left eye POST-OP DIAGNOSIS: same PROCEDURE: Cataract extraction using phacoemulsification with intraocular lens implant, left eye SURGEON: Bryan Bowling ANESTHESIA TYPE: Local By Surgeon and MAC Refer to Anesthesia Record PATHOLOGY: none sent COMPLICATIONS: None Patient was transported to: same day Patient's condition: stable Implants: Kervin and Kervin Tecnis Eyhance [id number] Indications: Progressive decreased vision due to cataract, left eye Procedure Description: CATARACT SURGERY OPERATIVE REPORT PREOPERATIVE DIAGNOSIS: 1. Nuclear/cortical cataract, left eye POSTOPERATIVE DIAGNOSIS: Same OPERATION: 1. Cataract extraction using phacoemulsification with posterior chamber intraocular lens implant, left eye. IOL: IOL Marketing Performance Analyst/Model: Kervin & Kervin Tecnis Eyhance DIB00 IOL Power: + 28.5 diopters IOL Serial Number: [id number] Optic Diameter: 6.0 mm Haptic/Overall Diameter: 13.0 mm PHACO INFO: [employer]urion Vision System with OZil and Active Fluidics Cumulative Dispersed Energy (CDE): 7.06 seconds SURGEON: Bryan Bowling MD, JEAN-CLAUDE ANESTHESIA: Monitored A [facility] ([facility]), with local sub-tenon's anesthetic infiltration COMPLICATIONS: None SPECIMENS: None INDICATIONS FOR PROCEDURE: The patient is an 79-year-old male with history of diminished visual acuity in both eyes secondary to the development of nuclear/cortical cataract. He is significantly symptomatic that he desires cataract surgery in attempt to improve and maximize his vision. The option of cataract surgery was offered to the patient and he wished to proceed. See office notes for detailed information. PROCEDURE: The correct surgical eye was identified and marked as the left eye and the pupil was dilated in the preoperative area using mydriatics and cycloplegics. The dilated pupil size was 5.0 mm. The patient elected to proceed without oral sedation. The patient was brought to the operating room where cardiopulmonary monitoring was instituted and surgical time-out was performed, confirming the correct operative eye and IOL power. Topical anesthesia was administered and ophthalmic povidone-iodine 5% was instilled into the conjunctival fornices. The wagner-ocular area was prepped with Betadine 10% solution and draped in the usual sterile fashion for intraocular surgery, including an aperture drape. A Tegaderm transparent film dressing was cut in half and used to cover the lashes and lid margins. Care was taken to sequester the lashes and lid margins under the Tegaderm dressing. A lid speculum was placed between the lids of the operative eye and the Ty Lux[employer] Revalia operating microscope was maneuvered into position. Ruddy scissors were then used to make a conjunctival buttonhole approximately 6mm posterior to the limbus in the inferonasal quadrant. Blunt dissection was carried out to expose bare sclera, and a blunt-tipped sub-tenon?s anesthesia cannula was introduced and passed posteriorly along the globe where non-preserved plain lidocaine was injected into posterior sub-Tenon?s space. A sideport knife was used to make a paracentesis port. Intraocular phenylephrine/lidocaine was injected into the anterior chamber.. The anterior chamber was filled with viscoelastic. A keratome knife was used to construct a 2-plane near-clear corneal tunnel extending 2.0mm into clear cornea. A flap was raised on the anterior capsule and capsulorhexis forceps were used to complete a continuous curvilinear capsulorhexis of 5.0 mm. Balanced salt solution was then used to perform cortical cleaving hydrodissection and nuclear hydrodelineation until the lens could be freely rotated within the capsular bag. The lens nucleus was then disassembled and removed within the capsular bag and iris plane using phacoemulsification. Residual cortical material was removed using the irrigation/aspiration handpiece. The posterior capsule was carefully polished to remove as much residual lens epithelial cells as safely possible. The capsular bag was then inflated and the anterior chamber deepened with viscoelastic. The lens implant described above was inserted into the capsular bag using the Kervin and Kerivn Simplicity pre-loaded injector. A Kuglen hook was used to dial the IOL into position. Residual viscoelastic was then removed first from posterior to the IOL, then from the anterior chamber using the I/A handpiece. The lens implant was noted to center nicely within the capsular bag. The incisions were stromally hydrated, and the anterior chamber was reformed using BSS. Then 0.5cc of moxifloxacin 1.0mg/ml were injected into the capsular bag and anterior chamber. The incisions were checked with a Weck spear and found to be secure. Several drops of ophthalmic povidone-iodine 5% were then applied to the eye followed by two drops of Imprimis combination prednisolone/moxifloxacin/nepafenac solution. The drapes were removed and a clear plastic protective eye shield was placed over the eye. The patient was then returned to Same Day Surgery in stable condition. Date of Procedure: 04/29/24
--- NOTE | 2024-04-29 11:35 | W.ANESPOSTOP ---
Postoperative Evaluation Date, Time and Location Date Performed: 04/29/24 Time Performed: 11:35 Patient Location: Day Surgery Unit Vital Signs Most Recent Imported Vital Signs: Most Recent Vital Signs Temp Pulse Resp BP Pulse Ox 36.4 C L 58 L 16 153/71 H 92 04/29/24 11:19 04/29/24 11:19 04/29/24 11:19 04/29/24 11:19 04/29/24 11:19 Pain Score Most Recent Pain Score: Most Recent Pain Score Pain Level 0 04/29/24 11:19 Assessment Mental Status: Awake (Alert & Oriented to Patient Baseline) Airway and Respiratory Function: Patent airway with normal (patient baseline) respiratory exam Cardiovascular Function: Hemodynamically Stable Hydration Status: Adequately Hydrated Nausea & Vomiting: No Nausea or Vomiting Pain: Pt. Denies Any Pain Peripheral Nerve Block: Patient did not receive a nerve block
== END 2024-04-29 11:46 | disposition home or self-care (01) ==
PROVIDERS: PCP Family Medicine; Visit Provider Ophthalmology
PROC: (CPT 66984; principal; 2024-04-29 11:30)
DX: H25.012 Cortical age-related cataract, left eye (principal); H25.12 Age-related nuclear cataract, left eye
CPT/HCPCS: 66984; 00123; V2632; J2003

== ENCOUNTER 2024-05-06 10:04 | Day surgery (SDC) | payer MEDICARE, OTHER, SELFPAY ==
[2024-05-06] MEDS: Tropicam./Phenyleph. (1/2.5%) 5 ML BTL OD ×3 (10:22→10:38)
[2024-05-06 10:25] VITALS: BP 124/75; PULSE 54; RESP 16; TEMP 36.6; O2SAT 98
--- NOTE | 2024-05-06 10:33 | ANES.PREOP_ITS ---
General Info Date of Service Date Performed: 05/06/24 Height: 5 ft 10 in Weight: 79.2 kg Body Mass Index (BMI): 25.0 Surgical Procedure: Operation Date: 05/06/24 12:40 Proposed Procedure Side Surgeon p Cataract Extraction with IOL Implant Right Bryan Bowling MD Actual Procedure Side Surgeon p Cataract Extraction with IOL Implant Right Bryan Bowling MD Pre-Op Diagnosis Post-Op Diagnosis Cataract, right eye Cataract, right eye Meds Allergies and Home Medications Allergies Allergy/AdvReac Type Severity Reaction Status Date / Time lisinopril AdvReac cough Verified 05/06/24 10:23 Home Medication ?Medication ?Instructions ?Recorded aspirin 81 mg tablet,delayed 81 mg PO DAILY #30 tab-caps 07/15/17 release (Aspir-) atorvastatin 10 mg tablet (Lipitor) 20 mg PO EVERY OTHER DAY 07/15/17 cholecalciferol (vitamin D3) 25 1,000 unit PO DAILY 10/08/17 mcg (1,000 unit) capsule (Vitamin D3) multivitamin (Daily Vitamin 1 ea PO DAILY 10/08/17 Formula tablet) yeast 500 mg (7.5 gr) tablet 500 mg PO BID 10/08/17 (Serrato's Yeast) bisoprolol fumarate 5 mg tablet 5 mg PO HS 01/18/21 losartan 50 mg tablet 100 mg PO DAILY 01/18/21 sildenafil 50 mg tablet 50 mg PO DAILY PRN 01/18/21 hydrocortisone 2.5 % topical cream 1 applic topical BID PRN 04/26/24 ketoconazole 2 % topical cream 1 applic topical BID PRN 04/26/24 levothyroxine 100 mcg tablet 100 mcg PO DAILY 04/26/24 tadalafil 20 mg tablet 20 mg PO DAILY 04/26/24 triamcinolone acetonide 0.1 % 1 applic topical BID PRN 04/26/24 topical ointment Current Visit Medications: Current Medications Generic Name Dose Route Start Last Admin Trade Name Freq PRN Reason Stop Dose Admin Acetaminophen 1,000 mg 05/06/24 06:00 Acetaminophen 500 Mg Tab PO 06/05/24 05:59 Q4H PRN PRN Balanced Salt Solution 500 ml 05/06/24 06:00 Balanced Salt Soln.-Plus 500 Ml Bag OP 06/05/24 05:59 DIRECTED [facility] Miscellaneous Medication 0 ml 05/06/24 06:00 Prednisolone 1%, Moxifloxacin 0.5%, Bromfenac 0.09% 5.6ml Btl OD 06/05/24 05:59 DIRECTED [facility] Miscellaneous Medication 0 ml 05/06/24 06:00 Tropicam./Phenyleph. (1/2.5%) 5 Ml Btl OD 06/05/24 05:59 DIRECTED [facility] Tetracaine HCl 0 ml 05/06/24 06:00 Tetracaine 0.5% 4 Ml Btl OD 06/05/24 05:59 DIRECTED [facility] PFSH Active Problems Active Problems: Problem Status Onset Code Cortical age-related cataract, right eye Acute H25.011 Nuclear age-related cataract, right eye Acute H25.11 Cortical age-related cataract, left eye Resolved H25.012 Nuclear age-related cataract, left eye Resolved H25.12 Mild ascending aorta dilation Acute I77.810 Epidermal cyst of ear Acute L72.0 Hydrocele Acute N43.3 Thoracic aortic aneurysm, without rupture Acute I71.2 Bicuspid aortic valve Acute Q23.[address] scan Acute R93.8 Syncope Acute R55 Epigastric pain Acute R10.13 Essential hypertension Acute I10 Small bowel obstruction Acute K56.609 Urinary tract infection Acute N39.0 Discharge planning issues Acute Z02.9 Medical History Medical History Vitamin D deficiency Hypertension SBO (small bowel obstruction) Ascending aortic aneurysm Prostatitis Hypothyroidism Hypercholesterolemia Eczema ED (erectile dysfunction) Seborrheic keratosis Vasovagal syncope Diverticulosis Squamous cell carcinoma in situ of skin Peyronie's disease UTI (urinary tract infection) Surgical History Surgical History History of esophagogastroduodenoscopy (EGD) (11/03/17) Dr Harris H/O colonoscopy (11/03/17) Dr Harris, repeat in 10 years, showed diverticulosis Normal colonoscopy H/O vasectomy Dermatofibroma of right lower leg Tobacco Smoking/Tobacco Use Status: Never Passive smoking exposure: No Alcohol Alcohol Intake: current Alcohol intake frequency: holidays/special occasions only Alcohol type: beer and wine Substance Use Substance use: Never Substance use type: does not use Vital Signs and Lab Results Vital Signs Most Recent Vital Signs in EMR: Most Recent Vital Signs Temp Pulse Resp BP Pulse Ox 36.6 C 54 L 16 124/75 98 05/06/24 10:25 05/06/24 10:25 05/06/24 10:25 05/06/24 10:05/06/24 10:25 Lab Results Blood Type / Crossmatch: No Data to Display Complete Blood Count: No Data to Display Complete Metabolic Panel: No Data to Display Liver Function Panel: No Data to Display Coagulation Panel: No Data to Display Cardiac Panel: No Data to Display Arterial Blood Gas: No Data to Display Venous Blood Gas: No Data to Display Pancreas Panel: No Data to Display Thyroid Panel: No Data to Display Infectious Disease: No Data to Display Blood Cultures: No Data to Display Toxicology Panel: No Data to Display Imaging and Studies Imaging and Studies Study information below may be from another EMR and interpreted by another provider. Please see original notes in EMR for more complete details. 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 Ejection fraction is 65%. Wall motion is normal Normal right ventricular size and systolic function. Both atria are mildly dilated Aortic valve is sclerotic and probably bicuspid with trace regurgitation. There is no aortic stenosis Mildly thickened mitral leaflets, mild mitral regurgitation Normal tricuspid valve with moderate regurgitation. Estimated right ventricular systolic pressure is 32 mmHg Dilated ascending aorta measuring 3.83 cm Carotid Artery Summary:: 07/2015:There is mild systolic and diastolic velocity elevations consistent with borderline mild to moderate stenosis bilaterally. There is no visible carotid artery narrowing. Anesthesia Assessment and Plan Anesthesia History Personal History: No History of Anesthesia Complications Family History: No Family History of Anesthesia Complications Exercise Tolerance Exercise Tolerance: Metabolic Equivalents>4 Cardiac & Pulmonary Exam Cardiac Exam: Normal S1/S2 Heart Sounds Pulmonary Exam: Clear Bilateral Breath Sounds Implantable Cardiac Device Does patient have a Pacemaker or an ICD?: No Airway Exam Known Difficult Airway: No Mallampati Class: 1 Mouth Opening: Normal (> 3cm) Thyromental Distance: Greater than 3 cm Neck Range of Motion: Full ROM Neck Circumference: Normal Teeth Condition: Normal Dentition ASA Classification ASA Score: ASA 3 Emergency Case?: No NPO Status NPO Status: NPO Clears >2 hours, Solids >8 hours Anesthesia Plan Resuscitation Status: Full Code Anesthesia Technique: MAC Anesthesia Airway Planned: Natural Airway Monitors Used: Standard Monitors
[2024-05-06 10:45] VITALS: BMI 25.0
[2024-05-06] MEDS: Duovisc Viscoelastic System EACH 1 EACH (11:06)
[2024-05-06] MEDS: Lidocaine 1% Pres-Free 5 ML VIAL (11:06)
[2024-05-06] MEDS: Moxifloxacin-PF 1 MG/ML VIAL (11:07)
[2024-05-06] MEDS: Povidone-Iodine Ophth 30 ML BTL (11:08)
[2024-05-06] MEDS: Phenylephrine/Lidocaine (15/10) MG/ML 1 ML VIAL (11:08)
[2024-05-06] MEDS: Prednisolone 1%, Moxifloxacin 0.5%, Bromfenac 0.09% 5.6ML BTL OD (11:09)
[2024-05-06] MEDS: Balanced Salt Soln.-PLUS 500 ML BAG OP (11:09)
[2024-05-06] MEDS: Tetracaine 0.5% 4 ML BTL OD (11:10)
[2024-05-06] MEDS: Trypan Blue 0.06% 0.5 ML SYR (11:17)
--- NOTE | 2024-05-06 11:28 | W.PM.DSUDISC ---
Date of service: 05/06/24 Discharge Plan Disposition Patient Disposition: Home Discharge Details Attending Provider: Bryan Bowling Primary Care Provider: Aditi Contreras Home Meds and New Rx's Prescriptions: No Action atorvastatin [Lipitor] 10 MG tablet 20 mg PO EVERY OTHER DAY aspirin [Aspir-81] 81 MG tablet,delayed release (DR/EC) 81 mg PO DAILY Qty: 30 0RF multivitamin [Daily Vitamin Formula] 1 EACH tablet 1 ea PO DAILY cholecalciferol (vitamin D3) [Vitamin D3] 1,000 UNIT capsule 1,000 unit PO DAILY Serrato's Yeast 500 MG tablet 500 mg PO BID bisoprolol fumarate 5 mg tablet 5 mg PO HS losartan 50 mg tablet 100 mg PO DAILY sildenafil 50 mg tablet 50 mg PO DAILY PRN Rx Instructions: administer 30 minutes to 4 hours before activity tadalafil 20 mg tablet 20 mg PO DAILY Rx Instructions: administer approximately 30min before sexual activity; do not use more than 1 dose per 24hrs levothyroxine 100 mcg tablet 100 mcg PO DAILY Patient Comments: TAKE ONE TABLET BY MOUTH EVERY DAY ketoconazole 2 % cream 1 applic topical BID PRN hydrocortisone 2.5 % cream 1 applic topical BID PRN triamcinolone acetonide 0.1 % ointment 1 applic topical BID PRN Discharge Instructions Stand Alone Forms: DSU Post-Op Makenzie Mckeon (DSU) Discharge Orders Discharge Orders: Discharge Order (Routine); Ordered 05/06/24 Ordered By: Bryan Bowling DS: Diagnosis Discharge Diagnosis (1) Cortical age-related cataract, right eye: Status: Resolved (2) Nuclear age-related cataract, right eye: Status: Resolved
--- NOTE | 2024-05-06 11:29 | ROE_ITS ---
Operative Note Operative Note PRE-OP DIAGNOSIS: Nuclear/cortical cataract, right eye POST-OP DIAGNOSIS: same PROCEDURE: Cataract extraction using phacoemulsification with intraocular lens implant, right eye SURGEON: Bryan Bowling ANESTHESIA TYPE: Local By Surgeon and MAC Refer to Anesthesia Record ESTIMATED BLOOD LOSS: 0 PATHOLOGY: none sent COMPLICATIONS: None Patient was transported to: same day Patient's condition: stable Implants: Kervin & Kervin Tecnis Eyhance DIB00 Indications: Progressive visual loss due to cataract, right eye Procedure Description: CATARACT SURGERY OPERATIVE REPORT PREOPERATIVE DIAGNOSIS: 1. Nuclear/cortical cataract, right eye POSTOPERATIVE DIAGNOSIS: Same OPERATION: 1. Cataract extraction using phacoemulsification with posterior chamber intraocular lens implant, right eye. IOL: IOL Eyeglass Lens Cutter/Model: Kervin & Kervin Tecnis Eyhance DIB00 IOL Power: + 28.5 diopters IOL Serial Number: [id number] Optic Diameter: 6.0mm Haptic/Overall Diameter: 13.0mm PHACO INFO: Ty [employer]ion Vision System with OZil and Active Fluidics Cumulative Dispersed Energy (CDE): 9.47 seconds SURGEON: Bryan Bowling MD, JEAN-CLAUDE ANESTHESIA: Monitored Anesthesia Care (MAC), with local sub-tenon's anesthetic infiltration COMPLICATIONS: None SPECIMENS: None INDICATIONS FOR PROCEDURE: The patient is an 79-year-old male with history of diminished visual acuity in both eyes secondary to the development of bilateral nuclear cataract. He is significantly symptomatic that he desires cataract surgery in attempt to improve and maximize his vision. The option of cataract surgery was offered to the patient and he wished to proceed. See office notes for detailed information. PROCEDURE: The correct surgical eye was identified and marked as the right eye and the pupil was dilated in the preoperative area using mydriatics and cycloplegics. The dilated pupil size was 5.0 mm. The patient elected to proceed without oral sedation. The patient was brought to the operating room where cardiopulmonary monitoring was instituted and surgical time-out was performed, confirming the correct operative eye and IOL power. Topical anesthesia was administered and ophthalmic povidone-iodine 5% was instilled into the conjunctival fornices. The wagner-ocular area was prepped with Betadine 10% solution and draped in the usual sterile fashion for intraocular surgery, including an aperture drape. A Tegaderm transparent film dressing was cut in half and used to cover the lashes and lid margins. Care was taken to sequester the lashes and lid margins under the Tegaderm dressing. A lid speculum was placed between the lids of the operative eye and the Ty Lux[employer] Revalia operating microscope was maneuvered into position. Ruddy scissors were then used to make a conjunctival buttonhole approximately 6mm posterior to the limbus in the inferonasal quadrant. Blunt dissection was carried out to expose bare sclera, and a blunt-tipped sub-tenon?s anesthesia cannula was introduced and passed posteriorly along the globe where non- preserved plain lidocaine was injected into posterior sub-Tenon?s space. A sideport knife was used to make a paracentesis port. VisionBlue was injected into the anterior chamber and allowed to sit for 30 seconds. Intraocular phenylephrine/lidocaine was injected into the anterior chamber. The anterior chamber was filled with viscoelastic. A keratome knife was used to construct a 2-plane clear corneal tunnel extending 2.0mm into clear cornea. A flap was raised on the anterior capsule and capsulorhexis forceps were used to complete a continuous curvilinear capsulorhexis of 5.0 mm. Balanced salt solution was then used to perform cortical cleaving hydrodissection and nuclear hydrodelineation until the lens could be freely rotated within the capsular bag. The lens nucleus was then disassembled and removed within the capsular bag and iris plane using phacoemulsification. Residual cortical material was removed using the I/A handpiece. The posterior capsule was carefully polished to remove as much residual lens epithelial cells as safely possible. The capsular bag was then inflated and the anterior chamber deepened with cohesive viscoelastic. The lens implant described above was inserted into the capsular bag using the Kervin and Jameson Simplicity pre- loaded injector. A Kuglen hook was used to dial the IOL into position. Residual viscoelastic was then removed first from posterior to the IOL, then from the anterior chamber using the I/A handpiece. The lens implant was noted to center nicely within the capsular bag. The incisions were stromally hydrated, and the anterior chamber was reformed using BSS. Then 0.5cc of moxifloxacin 1.0mg/ml were injected into the capsular bag and anterior chamber. The incisions were checked with a Weck spear and found to be secure. Several drops of ophthalmic povidone-iodine 5% were then applied to the eye followed by two drops ocombination steroid/NSAID/antibiotic solution. The drapes were removed and a clear plastic protective eye shield was placed over the eye. The patient was then returned to Same Day Surgery in stable condition. Date of Procedure: 05/06/24
[2024-05-06 11:34] VITALS: BP 137/74; PULSE 56; RESP 18; TEMP 36.5; O2SAT 98
--- NOTE | 2024-05-06 12:06 | W.ANESPOSTOP ---
Postoperative Evaluation Date, Time and Location Date Performed: 05/06/24 Time Performed: 11:28 Patient Location: Day Surgery Unit Vital Signs Most Recent Imported Vital Signs: Most Recent Vital Signs Temp Pulse Resp BP Pulse Ox 36.5 C 56 L 18 137/74 98 05/06/24 11:34 05/06/24 11:34 05/06/24 11:34 05/06/24 11:34 05/06/24 11:34 Pain Score Most Recent Pain Score: Most Recent Pain Score Pain Level 0 05/06/24 11:34 Assessment Mental Status: Awake (Alert & Oriented to Patient Baseline) Airway and Respiratory Function: Patent airway with normal (patient baseline) respiratory exam Cardiovascular Function: Hemodynamically Stable Hydration Status: Adequately Hydrated Nausea & Vomiting: No Nausea or Vomiting Pain: Pt. Denies Any Pain Peripheral Nerve Block: Patient did not receive a nerve block
== END 2024-05-06 11:50 | disposition home or self-care (01) ==
LOC: SUR 10:04
PROVIDERS: PCP Family Medicine; Visit Provider Ophthalmology
PROC: (CPT 66984; principal; 2024-05-06 12:30)
DX: H25.011 Cortical age-related cataract, right eye (principal); H25.11 Age-related nuclear cataract, right eye
CPT/HCPCS: 66984; 00123; V2632; J2003

== ENCOUNTER → 2024-08-29 09:52 | Outpatient (BNVA) | payer MEDICARE, OTHER, SELFPAY | PROVIDERS: PCP Family Medicine; Visit Provider Registered Nurse | DX: Q23.1 Congenital insufficiency of aortic valve (principal); I77.810 Thoracic aortic ectasia; Z79.02 Long term (current) use of antithrombotics/antiplatelets; Z79.899 Other long term (current) drug therapy | CPT/HCPCS: 99214 ==

== ENCOUNTER 2024-11-28 16:30 | Outpatient (REF) | payer MEDICARE, OTHER, SELFPAY ==
[2024-11-28 18:03] LABS: HCT 43.5 % (40.0-50.0); HGB 14.6 g/dL (13.5-17.5); MCH 30.9 pg (27.0-33.0); MCHC 33.6 % (32.0-36.0); MCV 92 fL (80-95); MPV 10.9 fL (8.0-11.0); Platelet Count 216 10^3/uL (130-400); RBC 4.73 10^6/uL (4.36-5.78); RDW 12.7 % (11.8-14.1); RDW-SD 43.1 fL; WBC 5.79 10^3/uL (4.4-10.8)
[2024-11-28 18:19] LABS: ALT 21 U/L (16-63); AST 17 U/L (15-37); Albumin 3.3 g/dL (3.4-5.0); Alkaline Phosphatase 80 U/L (46-116); Anion Gap 7.9 mmol/L (3-11); BUN 20 mg/dL (7-18); Bilirubin, Total 0.6 mg/dL (0.2-1.0); CO2 27.1 mmol/L (21.0-32.0); Calcium 8.4 mg/dL (8.5-10.1); Calculated LDL 86 mg/dL (<100); Chloride 107 mmol/L (98-107); Cholesterol 139 mg/dL (<200); Estimated GFR 85.80 (mL/min/1.73m2); Glucose 94 mg/dL (74-106); HDL Cholesterol 45 mg/dL (>or=40); Potassium 4.1 mmol/L (3.5-5.1); Sodium 142 mmol/L (136-145); TSH 1.42 uIU/mL (0.36-3.74); Total Protein 6.4 g/dL (6.4-8.2); Triglyceride 43 mg/dL (<150)
== END 2024-11-28 16:31 | disposition home or self-care (01) ==
LOC: NCHCN 16:30
PROVIDERS: PCP Family Medicine; Visit Provider Internal Medicine
DX: I10 Essential (primary) hypertension (principal); E78.00 Pure hypercholesterolemia, unspecified; E03.9 Hypothyroidism, unspecified
CPT/HCPCS: 80053; 80061; 85027; 84443